=== PATIENT | female | born 1970 | race Caucasian/White ===

== ENCOUNTER 2023-01-26 17:36 | Emergency (ER) | payer OTHER, SELFPAY ==
--- NOTE | ~2023-01-26 | XR_ITS ---
EXAM: XR cervical spine 4-5V DATE: 01/26/2023 18:31 HISTORY: FALL BACKWARDS ON TO FLOOR FROM CHAIR,POSTERIOR SWELL PAIN . COMPARISON: None available. FINDINGS: Craniocervical association and atlantoaxial joint are aligned. Moderate degenerative rowan e at the lateral dental interval. No prevertebral soft tissue swelling. Grade 1 anterolisthesis at C4 -5. Grade 1 retrolisthesis at C5-6. Vertebral body heights are maintained. Multilevel disc space narr owing and marginal osteophytosis, moderate at C5-6. Multilevel moderate facet sclerosis and hypertrop hy. Dental implants. IMPRESSION: Grade 1 anterolisthesis at C4-5. Grade 1 retrolisthesis at C5-6. Moderate degenerative di sc disease at C5-6. Multilevel moderate facet arthropathy. Reviewed, dictated and finalized at location K. IMPRESSION: Grade 1 anterolisthesis at C4-5. Grade 1 retrolisthesis at C5-6. Mo derate degenerative disc disease at C5-6. Multilevel moderate facet arthropathy .
[2023-01-26 17:48] VITALS: BP 130/71; PULSE 72; RESP 18; TEMP 36.5; O2SAT 100
--- NOTE | 2023-01-26 18:03 | ED.FALL ---
HPI - Fall General Chief Complaint: Fall Stated Complaint: Head/Right Shoulder/Elbow/Wrist/Right Thumb/Neck Time Seen by Provider: 01/26/23 18:03 Source: patient and RN notes reviewed Mode of arrival: ambulatory Limitations: no limitations History of Present Illness HPI Narrative: 52-year-old female presented for complaint of pain to multiple sites after injury today at work at 1450. She states she was sitting in a rolling office chair when she turned towards her computer, and recalls the back of the chair falling backwards, and she subsequently landed on the floor. She states she hit the back of her head on the left side on the tile floor. Unsure if she lost consciousness, but states she remembers her staff standing over her. Since the fall she has had headache, a knot on the back of her head, neck pain, right upper back pain, and pain down the right arm into the wrist. Endorses swelling at the right thumb without decreased ROM or bruising. Rates headache down to 3/10 from 6/10 after taking Tylenol 1000mg. Denies numbness, tingling, weakness to the upper extremities, dizziness, nausea, vomiting or vision changes. Review of Systems Review of Systems: CONSTITUTIONAL: Denies body aches, fever, chills, or sweats. EYES: Denies visual changes, redness, or discharge. ENT: Denies rhinorrhea, epistaxis, or otalgia. CARDIOVASCULAR: Denies chest pain, palpitations, or edema. RESPIRATORY: Denies cough or dyspnea. GASTROINTESTINAL: Denies abdominal pain, nausea, vomiting, or diarrhea. SKIN: Denies wounds. MUSCULOSKELETAL: per HPI NEUROLOGIC: Endorses headache, denies dizziness, numbness, tingling, or weakness All systems reviewed & are unremarkable except as noted in HPI and below PMFSH Past Medical History Medical History (Updated 01/26/23 @ 19:15 by Alexsandra Charlton, CARTER) No pertinent past medical history Comments At time of signature, I have reviewed and agree with nursing past medical, surgical, social and family history unless otherwise noted. Please see nursing chart for further information. There is no relevant family history pertinent to the presenting complaint Exam Narrative: GENERAL: Well-appearing, well-nourished HEAD: Normocephalic, tenderness with palpation over the posterior parietal area; no open wound or deformity EYES: PERRLA, EOMI. ENT: Mucous membranes pink and moist. No epistaxis. NECK: full ROM but reports pain posteriorly with movements. Reports vertebral and bilateral paraspinal tenderness with palpation at C3-4 area, no step off or deformity. CHEST: Clear to auscultation. HEART: Regular rate and rhythm. No murmur appreciated. Normal peripheral pulses. MUSC/EXTREMITIES: Full range of motion; Reports right shoulder/ trapezius pain with movements. Right upper back/scapular tenderness with palpation. Mild right hand swelling, full ROM and sensation intact. SKIN: Warm, dry, no rash. Capillary refill normal. Normal skin turgor. NEURO:No focal deficits. Alert and oriented x3. EOMs intact without nystagmus. No facial droop/asymmetry noted bilaterally. Grimace intact. Intact sensation in face. Hearing intact bilaterally. Shoulder shrug intact. Strength 5/5 bilateral upper extremities. Ambulatory exam with a normal based, steady gait. Course Course Emergency Course: Patient is aware of diagnosis, understands and agrees to treatment plan. Anticipatory guidance given. Portions of this record may have been created with voice recognition software Level of Care: Express Care Visit Vital Signs Vital signs: Vital Signs Temperature 97.7 F 01/26/23 17:48 Pulse Rate 72 01/26/23 17:48 Respiratory Rate 18 01/26/23 17:48 Blood Pressure 130/71 01/26/23 17:48 Pulse Oximetry 100 01/26/23 17:48 Oxygen Delivery Room Air 01/26/23 17:48 Temperature 97.7 F 01/26/23 17:48 Pulse Rate 72 01/26/23 17:48 Respiratory Rate 18 01/26/23 17:48 Blood Pressure 130/71 01/26/23 17:48 Pulse Oximetry
== END 2023-01-26 19:15 | disposition home or self-care (01) ==
PROVIDERS: Emergency Provider Nurse Practitioner Family
DX: M54.2 Cervicalgia (principal); G44.319 Acute post-traumatic headache, not intractable; W07.XXXA Fall from chair, initial encounter; Y99.0 Civilian activity done for income or pay
CPT/HCPCS: 72050; 99213; G0463